=== PATIENT | male | born 1980 | race Caucasian/White ===

== ENCOUNTER 2020-12-22 14:30 | Emergency (ER) | payer OTHER ==
[2020-12-22 14:53] LABS: BASOPHILS # (AUTO) 0.1 10^3/uL (0.0-0.1); BASOPHILS % (AUTO) 0.6 %; EOSINOPHILS # (AUTO) 0.2 10^3/uL (0.0-0.7); EOSINOPHILS % (AUTO) 1.8 %; HGB - HEMOGLOBIN 13.8 g/dL (14.0-18.0); LYMPHOCYTES # (AUTO) 2.3 10^3/uL (1.5-3.5); LYMPHOCYTES % (AUTO) 20.8 %; MEAN CORPUSCULAR HEMOGLOBIN 30.1 pg (27.0-31.0); MEAN CORPUSCULAR HGB CONC 32.9 g/dL (32.0-36.0); MEAN CORPUSCULAR VOLUME 91.7 fL (80.0-94.0); MEAN PLATELET VOLUME 10.2 fL (7.4-11.4); MONOCYTES # (AUTO) 0.9 10^3/uL (0.0-1.0); MONOCYTES % (AUTO) 7.9 %; NEUTROPHILS # (AUTO) 7.6 10^3/uL (1.5-6.6); NEUTROPHILS % (AUTO) 68.6 %; PLT - PLATELET COUNT 359 10^3/uL (130-450); RED BLOOD COUNT 4.58 10^6/uL (4.70-6.10); RED CELL DISTRIBUTION WIDTH 13.2 % (12.0-15.0); WHITE BLOOD COUNT 11.1 x10^3/uL (4.8-10.8)
[2020-12-22 14:57] LABS: BILIRUBIN,URINE NEGATIVE (NEGATIVE); CLARITY,URINE CLEAR (CLEAR); GLUCOSE, URINE (UA) NEGATIVE (NEGATIVE); KETONES,URINE (UA) NEGATIVE (NEGATIVE); LEUKOCYTE ESTERASE, URINE NEGATIVE (NEGATIVE); NITRITE,URINE NEGATIVE (NEGATIVE); OCCULT BLOOD,URINE NEGATIVE (NEGATIVE); PROTEIN,URINE NEGATIVE (NEGATIVE); UROBILINOGEN,URINE 0.2 (NORMAL) E.U./dL (NORMAL)
[2020-12-22 15:09] LABS: ALBUMIN 4.4 g/dL (3.2-5.5); ALBUMIN/GLOBULIN RATIO 1.2 (1.0-2.2); BILIRUBIN,TOTAL 0.9 mg/dL (0.2-1.0); CALCIUM 9.4 mg/dL (8.5-10.3); CREATININE 1.1 mg/dL (0.6-1.2); POTASSIUM 4.1 mmol/L (3.5-5.0)
--- NOTE | 2020-12-22 15:20 | ED Physician Documentation ---
History of Present Illness - Stated complaint Stated Complaint: MALE - Chief complaint Chief Complaint: Abd Pain - Additonal information Additional information: 40-year-old male who was recently diagnosed as diabetic presents to the emerg ency department for evaluation of rectal pain that has been ongoing for 1 week. He reports that it felt like he was sitting on glass. He had been defecating normally however until this a.m. when he noted that there was a lot of blood after wiping and blood on the stool. He has been using Preparation H without relief of symptoms. Patient is currently on Metformin and lisinopril. He was taken off the chlorthalidone secondary to changes in his liver enzymes. Denies NSAID use tobacco or alcohol use. No history of abdominal surgery. He denies abdominal pain fevers nausea or vomiting. Review of Systems Constitutional: denies: Fever, Chills Eyes: reports: Reviewed and negative Ears: reports: Reviewed and negative Nose: reports: Reviewed and negative Throat: reports: Reviewed and negative Cardiac: reports: Reviewed and negative Respiratory: reports: Reviewed and negative GI: reports: Bloody / black stool. denies: Abdominal Pain, Nausea, Vomiting : reports: Reviewed and negative Skin: reports: Reviewed and negative Musculoskeletal: reports: Reviewed and negative Neurologic: reports: Reviewed and negative PD PAST MEDICAL HISTORY - Past Medical History Past Medical History: Yes Cardiovascular: Hypertension Endocrine/Autoimmune: Type 2 diabetes - Past Surgical History Past Surgical History: No - Present Medications Home Medications: Ambulatory Orders Medication Instructions Recorded Confirmed Amox/Clav 875/125 [Augmentin] 1 each PO Q12H #20 tablet 12/22/20 HYDROcod/ACETAM 5/325 [Meddybemps 5/325] 1 tablet PO BID PRN #10 tablet 12/22/20 lisinopriL [Lisinopril] 40 mg PO DAILY 12/22/20 12/22/20 metFORMIN [Glucophage] 500 mg PO DAILY 12/22/20 12/22/20 - Allergies Allergies/Adverse Reactions: Allergies Allergy/AdvReac Type Severity Reaction Status Date / Time No Known Drug Allergies Allergy Verified 12/22/20 14:34 - Social History Does the pt smoke?: No Smoking Status: Never smoker Does the pt drink ETOH?: No Does the pt have substance abuse?: No PD ED PE EXPANDED - General General: Alert, No acute distress, Other (obese) - Cardiac Cardiac: Regular Rate, Radial strong equal, Cap refill < 2 sec. No: Murmur Present - Respiratory Respiratory: Clear to ausultation jonh. No: Distress, Labored - Abdomen Abdomen: Normal Bowel sounds. No: Tender to palpation - Rectal Rectal: Normal Tone, Other (draining perianal abscess 1 cm lateral to rectal rim right side. + blood and purulence. significant tenderness. Pain limits GABINO) - Neuro Neuro: Alert and Oriented X 3, CNII-XII intact Results - Vitals Vitals: Vital Signs - 24 hr 12/22/20 14:35 Temperature 36.6 C Heart Rate 91 Respiratory 18 Rate Blood Pressure 121/78 O2 Saturation 97 Oxygen O2 Source Room air - Labs Labs: Laboratory Tests 12/22/20 12/22/20 12/22/20 14:44 14:47 14:47 WBC 11.1 H RBC 4.58 L Hgb 13.8 L Hct 42.0 MCV 91.7 MCH 30.1 MCHC 32.9 RDW 13.2 Plt Count 359 MPV 10.2 Neut # (Auto) 7.6 H Lymph # (Auto) 2.3 [place] # (Auto) 0.9 Eos # (Auto) 0.2 Baso # (Auto) 0.1 Absolute Nucleated RBC 0.00 Nucleated RBC % 0.0 Sodium 138 Potassium 4.1 Chloride 103 Carbon Dioxide 27 Anion Gap 8.0 BUN 17 Creatinine 1.1 Estimated GFR (MDRD) 73 L Glucose 107 H Calcium 9.4 Total Bilirubin 0.9 AST 29 ALT 27 Alkaline Phosphatase 58 Total Protein 8.0 Albumin 4.4 Globulin 3.6 Albumin/Globulin Ratio 1.2 Lipase 76 H Urine Color YELLOW Urine Clarity CLEAR Urine pH 6.0 Ur Specific [place] 1.025 Urine Protein NEGATIVE Urine Glucose (UA) NEGATIVE Urine Ketones NEGATIVE Urine Occult Blood NEGATIVE Urine Nitrite NEGATIVE Urine Bilirubin NEGATIVE Urine Urobilinogen 0.2 (NORMAL) Ur Leukocyte Esterase NEGATIVE Ur Microscopic Review NOT INDICATED Urine Culture Comments NOT INDICATED - Rads (name of study) CT abd Radiology: Final report received (No perianal abscess identified. Sigmoid diverticulosis. Hepatomegaly diffuse hepatic steatosis. 4.9 cm Bosniak 2 right renal cyst.) PD MEDICAL DECISION MAKING - ED course Complexity details: reviewed results, re-evaluated patient, d/w patient ED course: 40-year-old male presents the emergency department for evaluation of rectal pain that has been ongoing for 1 week. This morning after defecating he noted a lot of blood on the toilet paper as well as bloody toilet bowl and stool. On exam he does have what appears to be a draining perianal abscess. Pain limits the ability for us to do a digital rectal exam. Screening labs do not show any acute worrisome abnormality. A CT of the abdomen did not identify a perianal abscess. On repeat evaluation there does appear however to be a small abscess about 1 to 2 cm lateral to the right rectal rim. I suspect that this minor abscess is what is caused his rectal discomfort. He will be started on Augmentin twice daily for the next 10 days and I recommend warm sitz baths. Patient is to return the emergency department if the symptoms are not improving. I am prescribing a short course of short-acting opioid pain medication for this patient. I have reviewed the patients [employer] and no concerning findings were noted. I have discussed that the opioids are for short term therapy only, and will not be refilled from the ED. Departure - Departure Disposition: 01 Home, Self Care Clinical Impression: Perirectal abscess Condition: Stable Record reviewed to determine appropriate education?: Yes Prescriptions: Amox/Clav 875/125 [Augmentin] 1 each PO Q12H #20 tablet HYDROcod/ACETAM 5/325 [Meddybemps 5/325] 1 tablet PO BID PRN #10 tablet PRN Reason: Pain Comments: Brain villarreal were seen in the ER today for rectal pain for 1 week as well as new onset rectal bleeding today. Your screening labs do not show any acute worrisome abnormalities. On exam you do have a small abscess about 1 to 2 cm to the right of your rectum. This is draining some bloody purulent material. I was concerned that you could have what is called a perianal abscess and in some cases these can communicate with the rectum itself. CT scan was completed today and it does not show a perianal abscess. You do however have a small soft tissue abscess that is continuing to drain. Like you to fill the prescription for the Augmentin and begin taking twice daily as directed. I recommend that you do a warm sits bath once or twice a day for 10 minutes. The salt in the magnesium can help rinse through the wound and reduce pain and inflammation. If despite the antibiotics and the sitz baths you find that you are having worsening symptoms increased pain, fevers or bleeding please return immediately to the ER for a second evaluation. I am prescribing a short course of narcotic pain medication for you. These are potentially dangerous and addictive medications that should be used carefully. These medications may constipate you. Take an rodl-sgw-dglwjch stool softener (docusate) twice daily with plenty of water while taking these medications. If you go 24 hours without a bowel movement, take tcvz-iwa-wxmcuxs miralax, per package instructions. Do not drink or drive while taking these medications. If you received narcotic or sedating medications while in the emergency department, do not drive for 24 hours. Store this medication in a safe, secure place and out of reach of children. It is a violation of federal law to give or sell this medication to another person or to use in a manner other than prescribed. The ED will not refill narcotic prescriptions, including prescriptions lost or stolen. To dispose of unwanted medications: 1. [facility] at [address] in [place] has a medication drop box. They accept prescription medications (in pill form) Sunday through Sunday 9:00 a.m. to 5:00 p.m. 2. The [facility] [employer] accepts prescription medications (in pill form only) for disposal year round. Call for more information. 3. Contact the [facility] for the next [facility] sponsored prescription drug collection event. , [phone], or [phone]; Note that many narcotic pain relievers also contain Tylenol/acetaminophen. Please ensure that your total dose of acetaminophen from all sources does not exceed 3 g (3000 mg) per day.
[2020-12-22] MEDS ORDERED: IOVERSOL 320 100 ML VIAL IVP ONE (15:23)
[2020-12-22] MEDS: SODIUM CHLORIDE 0.9% 1,000 ML IV STA (15:58)
[2020-12-22] MEDS: IOVERSOL 320 100 ML VIAL IVP ONE (16:55)
--- NOTE | 2020-12-22 17:07 | CT Report ---
PROCEDURE: Abdomen/Pelvis W INDICATIONS: perianal abscess; rectal bleeding CONTRAST: IV CONTRAST: Optiray 320 ml: 100 PO CONTRAST: *NO PO CONTRAST TECHNIQUE: After the administration of intravenous contrast, 5 mm thick sections acquired from the diaphragms to the symphysis. 5 mm thick coronal and sagittal reformats were acquired. For radiation dose reducti on, the following was used: automated exposure control, adjustment of mA and/or kV according to elidia ent size. COMPARISON: None. FINDINGS: Image quality: Excellent. ABDOMEN: Lung bases: Lung bases are clear. Heart size is normal. Solid organs: Hepatomegaly without liver mass. Moderate diffuse hepatic steatosis. Spleen is normal in size. Gallbladder is unremarkable. Biliary system is non dilated. Pancreas enhances normally. N o adrenal nodules. Kidneys demonstrate normal size and enhancement, without hydronephrosis. Probable 4.9 cm Bosniak 2 right middle pole renal cyst. Peritoneum and bowel: Bowel loops demonstrate normal wall thickness and caliber. No free fluid or a ir. No perianal abscess identified. Sigmoid diverticulosis without evidence of diverticulitis. Nodes and vessels: No retroperitoneal or mesenteric adenopathy by size criteria. Aorta and inferior vena cava are normal in size. Miscellaneous: No ventral hernias. PELVIS: Genitourinary: Bladder wall thickness is normal. Miscellaneous: No inguinal hernias or adenopathy. Bones: No suspicious bony lesions. No vertebral body compression fractures. A peripherally calcifi ed disc protrusion at L5-S1 results in canal stenosis. IMPRESSION: 1. No perianal abscess identified. 2. Sigmoid diverticulosis. 3. Hepatomegaly, diffuse hepatic steatosis. 4. Probable 4.9 cm Bosniak 2 right renal cyst. Reviewed by: Maicol Grant MD on 12/22/2020 5:06 PM PDT Approved by: Maicol Grant MD on 12/22/2020 5:06 PM PDT Station ID: [id number]
[2020-12-22 17:38] VITALS: BP 152/94
== END 2020-12-22 18:10 | disposition home or self-care (01) ==
LOC: ED 14:30
DX: K61.1 Rectal abscess (principal); E11.9 Type 2 diabetes mellitus without complications; Z79.84 Long term (current) use of oral hypoglycemic drugs; I10 Essential (primary) hypertension
CPT/HCPCS: 36415; 74177; 80053; 81003; 83690; 85025; 99284; Q9967; 81001; 87086